=== PATIENT | female | born 1960 | race Caucasian/White ===

== ENCOUNTER 2025-02-19 22:56 | Emergency (ER) | payer OTHER, SELFPAY ==
[2025-02-19 22:57] VITALS: BP 128/67
[2025-02-19 23:23] LABS: Urine Albumin 2+ (Neg - Trace); Urine Bilirubin 3+ (Negative); Urine Character Slightly Cloudy (Clear); Urine Color Orange; Urine Glucose Negative (Negative); Urine Ketone Negative (Negative); Urine Leukocyte 3+ (Negative); Urine Nitrite Positive (Negative); Urine Occult Blood 4+ (Negative); Urine Urobilinogen 4+ (Neg - 1+)
--- NOTE | 2025-02-20 00:04 | ED.GENMED ---
History of Present Illness
General
Chief Complaint: Urinary Symptoms
Source: patient
Exam Limitations: none
Time Seen by Provider: 02/19/25 23:30
Nursing documentation reviewed up to this point in time: agreed with
History of Present Illness
History of Present Illness:
Note:
CHIEF COMPLAINT(S)
Burning urinary sensation for 24 hours.
HISTORY OF PRESENT ILLNESS
The patient is a 64-year-old female who presents with a burning sensation during urination that started 24 hours ago. The sensation has been persistent. The patient denies experiencing any fever or vomiting but reports feeling intermittently hot and
experiencing chills. During the physical examination, the patient reported sharp pain upon percussion over the back, potentially indicating costovertebral angle tenderness, but denies abdominal pain upon palpation.
MEDICATIONS
No specific preferences or known allergies to antibiotics reported by the patient.
PHYSICAL EXAM
- Back Examination: NO CVAT upon percussion.
- Abdominal Examination: No pain upon palpation noted.
- Nursing notes reviewed and vital signs reviewed.
PROBLEM LIST
Acute Problems:
- Urinary tract infection with burning sensation while urinating.
PLAN
-Urinalysis consistent with urinary tract infection no back pain no fever
- Initiate treatment with Keflex (cephalexin) 2x a day for five days.
- Administer the first dose of Keflex in the emergency department.
- Urine culture to be performed to confirm the diagnosis and ensure appropriate treatment.
- Follow-up required in two days to review culture results and modify antibiotic treatment if necessary.
DIFFERENTIAL DIAGNOSIS
The Differential Diagnosis includes, in no particular order and is not limited to:
1. Urinary tract infection
2. Interstitial cystitis
3. Pyelonephritis no back pain no fever
4. Urethritis
5. Vaginitis
6. Renal stones
7. Gynecological infection
8. Bacterial vaginosis
9. Overactive bladder
10. Bladder cancer
Phy Exam
Physical Exam
Physical Exam:
GENERAL: Alert , in no apparent distress
EYE: pupils equal and reactive
NECK: Supple, no significant adenopathy.
ENT: o/p clr, mmm.
CARDIAC: Regular rate and rhythm .
LUNGS: Clear breath sounds bilaterally, no acute respiratory distress, no wheezes/rales/rhonchi
ABDOMEN: Soft, without focal tenderness, no r/g, no cvat
NEUROLOGICAL: Alert and oriented, no focal neuro deficits
SKIN: Warm and dry, skin intact.
MUSCULOSKELETAL: No edema, well perfused.
PSYCH: Normal and appropriate interaction.
Course
Orders/Labs/Results
Orders:
Orders
02/19/25 23:07
Urinalysis Reflex To Culture Urgent
Date Specimen was Collected: 02/19/25
Time Specimen was Collected: 23:02
Urine Microscopic Reflex Cult Urgent
Urine Culture Urgent
HELADIO Source: U
Specimen Description:
Date Specimen was Collected: 02/19/25
Time Specimen was Collected: 23:02
02/20/25 00:03
Cephalexin Monohydrate [Keflex] 500 mg PO NOW STA
Abnormal Lab Results
02/19/25
23:07
Ur Occult Blood Reflex 4+ A
(Negative)
Urine Nitrite (Reflex) Positive A
(Negative)
Urine Bilirubin 3+ A
(Negative)
Urine Urobilinogen 4+ A
(Neg - 1+)
Leukocyte Esterase Rfl 3+ A
(Negative)
Urine Albumin (Reflex) 2+ A
(Neg - Trace)
Vital Signs
Initial and Last Documented VS:
Initial Vital Signs
Temp Pulse Resp BP Pulse Ox
98.6 F 65 18 128/67 99
02/19/25 22:57 02/19/25 22:57 02/19/25 22:57 02/19/25 22:57 02/19/25 22:57
Last Documented Vital Signs
Temp Pulse Resp BP Pulse Ox
98.6 F 65 18 128/67 99
02/19/25 22:57 02/19/25 22:57 02/19/25 22:57 02/19/25 22:57 02/19/25 22:57
*Critical Care Note
Total Time (30-74mins, 75-104mins- exclusive of procedures): Not Applicable
ED Attending Note
-
Portions of this chart may have been created with voice recognition software.� Occasional wrong word or��sound alike� substitutions may have occurred due to the inherent limitations of voice recognition software.
Discharge Plan
Departure
Patient Disposition: Home (Routine Discharge)
Date of Disposition: 02/20/25
Time of Disposition: 00:13
Patient with high blood pressure during this ER visit?: No
Condition: Good
Covid-19: Not Applicable
Discharge Problem:
UTI (urinary tract infection)
Instructions: Urinary Tract Infection, Adult (DC)
Prescriptions:
New
cephalexin 500 mg capsule
500 mg PO BID 5 Days Qty: 10 0RF
Activity Restrictions/Additional Instructions:
You came to the emergency department today with concerns of urinary symptoms. It does appear that you have a urinary tract infection. Please take the Keflex twice daily for the next 5 days and follow closely with the primary care doctor. Return
for any worsening, new or concerning symptoms.
Interventions
Interventions:
*Risk Screen - Suicide Last Done: 02/19/25 22:57
*General Assessment Last Done: 02/19/25 22:57
*Neglect/Abuse Screening Last Done: 02/19/25 22:57
Discharge Date and Time
Print Language: PORTUGUESE
[2025-02-20 00:16] LABS: Urine Bacteria Moderate (Negative); Urine Red Blood Cell 50-60 /HPF (0-2); Urine White Cell >100 /HPF (0-5)
[2025-02-20 00:19] VITALS: BMI 29.4
[2025-02-20] MEDS: KEFLEX 500 MG PO (00:19)
== END 2025-02-20 00:29 | disposition home or self-care (01) ==
LOC: EMR 22:56
PROVIDERS: Emergency Medicine; EMERGENCY PHYSICIAN Student in an Organized Health Care Education/Training Program; FAMILY PHYSICIAN Family Medicine
DX: N39.0 Urinary tract infection, site not specified (principal); E78.5 Hyperlipidemia, unspecified; F32.A Depression, unspecified
CPT/HCPCS: 99283; 81003; 81015; 87077; 87086

== ENCOUNTER 2025-04-19 06:20 | Day surgery (SDC) | payer OTHER, SELFPAY | END 2025-04-19 11:30 | disposition home or self-care (01) | LOC: GI 06:20 | PROVIDERS: ATTENDING PHYSICIAN Internal Medicine | DX: Z12.11 Encounter for screening for malignant neoplasm of colon (principal); K57.30 Diverticulosis of large intestine without perforation or abscess without bleeding; K62.89 Other specified diseases of anus and rectum; K62.1 Rectal polyp; K63.5 Polyp of colon | CPT/HCPCS: 45380; 88305 ==